=== PATIENT | male | born 1955 | race Caucasian/White ===

== ENCOUNTER 2021-11-06 15:24 | Inpatient (IN) ==
[2021-11-06] MEDS ORDERED: Piperacillin/Tazobactam 3.375 GM in 0.9 % Sodium Chloride Mini Bag 100 ML IVPB ONE (15:30)
[2021-11-06] MEDS ORDERED: Vancomycin 1,500 MG/265 ML IV.SOLN IVPB ONE (16:00)
[2021-11-06] MEDS ORDERED: Piperacillin/Tazobactam 3.375 GM VIAL ONE (16:34)
[2021-11-06] MEDS ORDERED: 0.9 % Sodium Chloride Mini Bag 100 ML ONE (16:34)
[2021-11-06 16:36] LABS: Basophils # 0.1 K/mcL (0.0-0.2); Basophils % 0.9 %; Eosinophils # 0.7 K/mcL (0.0-0.6); Eosinophils % 7.3 %; Hematocrit 43.9 % (37.5-50.1); Hemoglobin 14.7 g/dL (12.9-16.9); Immature Granulocytes % 0.3 % (0-4); Lymphocytes # 2.8 K/mcL (0.6-4.6); Lymphocytes % 31.7 %; Mean Corpuscular HGB Conc 33.5 g/dL (31.6-35.5); Mean Corpuscular Hemoglobin 31.5 pg (28.0-33.3); Mean Corpuscular Volume 94.2 fL (83.0-100.0); Mean Platelet Volume 10.4 fL (9.4-12.4); Monocytes # 0.7 K/mcL (0.0-1.3); Monocytes % 7.8 %; Neutrophils # 4.7 K/mcL (1.6-8.9); Platelet Count 258 K/mcL (140-400); Red Blood Count 4.66 M/mcL (4.19-5.50); Red Cell Distribution Width 13.6 % (11.5-14.5)
[2021-11-06] MEDS ORDERED: 0.9 % Sodium Chloride 1,000 ML IVC ONE (16:43)
[2021-11-06 16:51] LABS: BUN/Creatinine Ratio 9 (6-26); Blood Urea Nitrogen 6 mg/dL (8-23); C-Reactive Protein 9 mg/L (Less than 10); Calcium 9.2 mg/dL (8.6-10.3); Carbon Dioxide 23 mEq/L (23-29); Chloride 105 mEq/L (98-107); Glucose 112 mg/dL (70-105); Osmolality,Calculated 280 (280-300); Potassium 3.2 mEq/L (3.5-5.1); Sodium 136 mEq/L (136-145)
[2021-11-06] MEDS ORDERED: Nitroglycerin 0.4 MG TAB.SUBL SL PRN (17:16)
[2021-11-06] MEDS ORDERED: Naloxone 0.4 MG/ML INJ IVP PRN (17:17)
[2021-11-06] MEDS ORDERED: *HR* HYDROcodone/Acet 5/325 mg TABLET PO PRN (17:17)
[2021-11-06] MEDS ORDERED: Ondansetron ODT 4 MG TAB.RAPDIS SL PRN (17:17)
[2021-11-06] MEDS: Famotidine 20 MG TABLET PO SCH (20:40)
[2021-11-07] MEDS: Piperacillin/Tazobactam 3.375 GM in 0.9 % Sodium Chloride Mini Bag 100 ML IVPB SCH ×3 (00:01→16:05)
[2021-11-07] MEDS ORDERED: Vancomycin 1,500 MG/265 ML IV.SOLN IVPB SCH (06:00)
[2021-11-07 06:44] LABS: Basophils # 0.1 K/mcL (0.0-0.2); Basophils % 0.9 %; Eosinophils # 0.6 K/mcL (0.0-0.6); Hematocrit 43.6 % (37.5-50.1); Hemoglobin 14.3 g/dL (12.9-16.9); Immature Granulocytes % 0.4 % (0-4); Lymphocytes # 2.7 K/mcL (0.6-4.6); Lymphocytes % 28.5 %; Mean Corpuscular HGB Conc 32.8 g/dL (31.6-35.5); Mean Corpuscular Hemoglobin 31.4 pg (28.0-33.3); Mean Corpuscular Volume 95.6 fL (83.0-100.0); Mean Platelet Volume 10.7 fL (9.4-12.4); Monocytes # 0.7 K/mcL (0.0-1.3); Monocytes % 7.4 %; Neutrophils # 5.3 K/mcL (1.6-8.9); Platelet Count 260 K/mcL (140-400); Red Blood Count 4.56 M/mcL (4.19-5.50); Red Cell Distribution Width 13.7 % (11.5-14.5); Segmented Neutrophils % 56.8 %; White Blood Count 9.3 K/mcL (4.3-11.1)
[2021-11-07 07:00] LABS: BUN/Creatinine Ratio 6 (6-26); Blood Urea Nitrogen 5 mg/dL (8-23); Calcium 8.8 mg/dL (8.6-10.3); Carbon Dioxide 21 mEq/L (23-29); Chloride 110 mEq/L (98-107); Glucose 94 mg/dL (70-105); Osmolality,Calculated 283 (280-300); Potassium 3.7 mEq/L (3.5-5.1); Sodium 138 mEq/L (136-145)
[2021-11-07] MEDS: Famotidine 20 MG TABLET PO SCH (09:20)
[2021-11-07] MEDS ORDERED: Bupivacaine/EPI 1:200k 0.25% 50 ML VIAL ONE (15:24)
[2021-11-07] MEDS ORDERED: Albuterol 2.5 MG/3 ML NEBULIZER IH ONE (17:57)
[2021-11-07] MEDS ORDERED: *HR* OxyCODONE Immed Rel 5 MG TABLET PO ONE (17:59)
[2021-11-07] MEDS ORDERED: Albuterol 2.5 MG/3 ML NEBULIZER ONE (17:59)
[2021-11-07] MEDS ORDERED: Ondansetron 4 MG/2 ML VIAL ONE (18:28)
[2021-11-07] MEDS ORDERED: Lidocaine -MPF 2% 5 ML VIAL ONE (18:28)
[2021-11-07] MEDS ORDERED: *HR* FentaNYL (PF) 100 MCG/2 ML VIAL ONE (18:28)
[2021-11-07] MEDS: *HR* HYDROmorphone PF 0.5 MG/0.5 ML SYRINGE IVP PRN ×3 (19:45→20:11)
[2021-11-07] MEDS ORDERED: Cyanocobalamin (B-12) 1,000 MCG TABLET PO SCH (21:00)
[2021-11-07] MEDS ORDERED: Nitroglycerin 0.4 MG TAB.SUBL SL PRN (21:23)
[2021-11-07] MEDS ORDERED: Naloxone 0.4 MG/ML INJ IVP PRN (21:23)
[2021-11-07] MEDS ORDERED: Ondansetron ODT 4 MG TAB.RAPDIS SL PRN (21:23)
[2021-11-07] MEDS ORDERED: *HR* HYDROcodone/Acet 5/325 mg TABLET PO PRN (21:23)
[2021-11-07] MEDS: Nicotine 21 MG PATCH.TD24 TD SCH ×2 (23:39)
[2021-11-08] MEDS: Piperacillin/Tazobactam 3.375 GM in 0.9 % Sodium Chloride Mini Bag 100 ML IVPB SCH ×3 (00:45→17:46)
[2021-11-08] MEDS: Famotidine 20 MG TABLET PO SCH ×2 (08:14→21:18)
[2021-11-08] MEDS: Cyanocobalamin (B-12) 1,000 MCG TABLET PO SCH ×2 (08:14→21:17)
[2021-11-08] MEDS ORDERED: Nicotine 21 MG PATCH.TD24 TD SCH (21:00)
[2021-11-09] MEDS: Piperacillin/Tazobactam 3.375 GM in 0.9 % Sodium Chloride Mini Bag 100 ML IVPB SCH (03:58)
[2021-11-09] MEDS ORDERED: Aspirin 81 MG TAB.CHEW PO SCH (09:00)
[2021-11-09] MEDS: Famotidine 20 MG TABLET PO SCH (09:11)
[2021-11-09] MEDS: Cyanocobalamin (B-12) 1,000 MCG TABLET PO SCH (09:11)
[2021-11-09] MEDS ORDERED: tiZANidine 4 MG TABLET PO SCH (09:30)
[2021-11-09 10:21] VITALS: BP 149/89; PULSE 95; TEMP 97.7; O2SAT 94
[2021-11-09] MEDS ORDERED: Piperacillin/Tazobactam 3.375 GM in 0.9 % Sodium Chloride Mini Bag 100 ML IVPB SCH (12:00)
== END 2021-11-09 12:11 | disposition home or self-care (01) | DRG 603 ==
LOC: 3ANU 15:24 → EMEROOARM 15:24 → SUATTDRO 17:28 → 3ANU 18:30
PROVIDERS: ADMIT Hospitalist; ATTEND Registered Nurse